=== PATIENT | female | born 1935 | race Caucasian/White ===

== ENCOUNTER 2021-02-21 11:46 | Outpatient (CLI) | payer MEDICARE, OTHER | END 2021-02-21 11:47 | disposition home or self-care (01) | LOC: CSHWCC 11:46 | PROVIDERS: ATTEND Nurse Practitioner Family | DX: I87.332 Chronic venous hypertension (idiopathic) with ulcer and inflammation of left lower extremity (principal); I87.2 Venous insufficiency (chronic) (peripheral); L97.421 Non-pressure chronic ulcer of left heel and midfoot limited to breakdown of skin; L97.322 Non-pressure chronic ulcer of left ankle with fat layer exposed; I70.244 Atherosclerosis of native arteries of left leg with ulceration of heel and midfoot; I11.0 Hypertensive heart disease with heart failure; I50.9 Heart failure, unspecified; R60.0 Localized edema; I70.25 Atherosclerosis of native arteries of other extremities with ulceration; M81.0 Age-related osteoporosis without current pathological fracture; D64.9 Anemia, unspecified; E78.2 Mixed hyperlipidemia; M79.662 Pain in left lower leg | CPT/HCPCS: 29581; 97139; G0463; 99213 ==

== ENCOUNTER 2021-08-28 22:55 | Emergency (ER) | payer MEDICARE, MEDICAID ==
[2021-08-28] MEDS ORDERED: HYDROcodone/Acetaminophen 10/325 mg Tablet ONE (23:47)
[2021-08-28] MEDS ORDERED: HYDROcodone/Acetaminophen 5/325 mg Tablet ONE (23:50)
== END 2021-08-28 23:54 | disposition home or self-care (01) ==
LOC: CSHERS 22:55
DX: G62.9 Polyneuropathy, unspecified (principal); I83.023 Varicose veins of left lower extremity with ulcer of ankle; L97.329 Non-pressure chronic ulcer of left ankle with unspecified severity; I25.10 Atherosclerotic heart disease of native coronary artery without angina pectoris; E78.5 Hyperlipidemia, unspecified; I10 Essential (primary) hypertension; Z86.16 Personal history of COVID-19; Z79.01 Long term (current) use of anticoagulants; Z79.899 Other long term (current) drug therapy; Z79.82 Long term (current) use of aspirin; Z87.891 Personal history of nicotine dependence
CPT/HCPCS: 99284